=== PATIENT | male | born 2000 | race Caucasian/White ===

== ENCOUNTER 2021-09-12 21:18 | Observation (INO) | payer OTHER, SELFPAY ==
--- NOTE | ~2021-09-12 | CT_ITS ---
EXAMINATION: CT abdomen pelvis w con DATE: 09/12/2021 23:00 INDICATION: Abdominal pain TECHNIQUE: Computed tomography (CT) of the abdomen and pelvis was performed with 100 mL Omnipaque-350 intravenous contrast. Automated exposure control and iterative reconstruction technique were employe d. The dose-length product was 228.93 mGy-cm. COMPARISON: None FINDINGS: Lung bases are clear. Heart size is normal. No pericardial or pleural effusion. Subcentimeter hepatic cyst. Gallbladder, spleen, pancreas, bilateral adrenal glands and kidneys are normal. There is some inflammatory stranding surrounding the retrocecal appendix which is fluid-filled and dilated to 9 mm consistent with acute appendicitis. No bowel obstruction. Bladder is normal. No abscess or free intra peritoneal gas or fluid. Mild thoracic dextrocurvature. IMPRESSION: 1. Acute appendicitis. Dr. Sal discussed these findings with Dr. Badillo at 11:18 PM. Reviewed, dictated and finalized at location A.
[2021-09-12 21:39] VITALS: BP 99/48; PULSE 81; RESP 20; TEMP 36.9; O2SAT 100
--- NOTE | 2021-09-12 21:43 | PC.NURSE ---
Patient refused blood draw in triage, states I need to lay down and I will wait to get to a room.
[2021-09-12 22:19] LABS: Basophils Absolute Auto 0.1 K/mm3 (0.0-0.1); Basophils Percent Auto 0.4 % (0.2-1.2); Eosinophils Percent Auto 0.2 % (0-4.4); Hematocrit 48.8 % (42.0-52.0); Hemoglobin 16.4 g/dL (14.0-18.0); Immature Granulocyte Absolute 0.09 K/mm3 (0.00-0.031); Immature Granulocyte Percent A 0.5 % (0-0.5); Lymphocytes Absolute Auto 1.79 K/mm3 (0.9-3.2); Lymphocytes Percent Auto 9.3 % (18.3-44.2); Mean Corpuscular HGB Conc 33.6 g/dl (32-36); Mean Corpuscular Volume 95.1 fl (80-100); Mean Platelet Volume 10.3 fl (7.4-10.4); Monocytes Absolute Auto 0.9 K/mm3 (0.1-0.6); Monocytes Percent Auto 4.7 % (2.6-8.5); Neutrophils Absolute Auto 16.4 K/mm3 (1.3-6.7); Neutrophils Percent Auto 84.9 % (45.5-73.1); Platelet Count Result 245 k/mm3 (150-375); Red Blood Count 5.13 M/mm3 (4.6-6.20); Red Cell Distribution Width 12.6 % (11.5-14.5); White Blood Count 19.3 K/mm3 (4.5-10.0)
[2021-09-12 22:22] LABS: Add Urine Microscopic? YES; Appearance Urine Clear (Clear); Bilirubin Urine Negative (Negative); Blood Urine Negative (Negative); Color Urine Yellow (Yellow); Glucose Urine UA Negative (Negative); Ketones Urine 1+ mg/dL (Negative); Leukocyte Esterase Ur Negative LEU/UL (Negative); Mucus Urine Heavy /lpf; Nitrate Urine Negative (Negative); Protein Urine 1+ mg/dL (Negative); RBC Urine 0-2 /hpf (0-2); Specific Grav Ur 1.023 (1.001-1.035); Squamous Epithelial Cell Urine Rare /hpf (Few); Urobilinogen Urine Negative mg/dL (<2.0); WBC Urine 0-3 /hpf
--- NOTE | 2021-09-12 22:29 | ED.ABDPAIN ---
HPI - Abdominal Pain General Chief Complaint: Abdominal Pain <Mehnaz Badillo APRN - Last Filed: 09/13/21 03:30> Stated Complaint: abdominal pain <Mehnaz Badillo APRN - Last Filed: 09/13/21 03:30> Time Seen by Provider: 09/12/21 21:55 <Mehnaz Badillo APRN - Last Filed: 09/13/21 03:30> Source: patient <Mehnaz Ajay Badillo APRN - Last Filed: 09/13/21 03:30> Mode of arrival: ambulatory <Mehnaz Badillo APRN - Last Filed: 09/13/21 03:30> History of Present Illness HPI narrative: 21-year-old male presents today with complaints of generalized abdominal pain that started about 1:00 this afternoon. Patient with complaints of nausea and vomiting x1. Patient denies any surgical history of the abdomen. Patient denies diarrhea, constipation, or fever. Patient states it is a sharp pain. Alleviating factor includes lying on his side and crawling up. Aggravating factors include certain movements, positions, and palpation. Patient denies any urinary symptoms. Patient denies drug usage. <Mehnaz Badillo APRN - Last Filed: 09/13/21 03:30> Related Data Home Medications: Home Medications Medication Instructions Recorded Confirmed No Home Medications 09/12/21 09/12/21 <Mehnaz Badillo APRN - Last Filed: 09/13/21 03:30> Allergies/Adverse Reactions: Allergies Allergy/AdvReac Type Severity Reaction Status Date / Time No Known Allergies Allergy Verified 09/13/21 01:06 <Mehnaz Badillo APRN - Last Filed: 09/13/21 03:30> Review of Systems Review of Systems: CONSTITUTIONAL: Denies fever, chills, or sweats. EYES: Denies visual changes, redness, or discharge. ENT: Denies rhinorrhea, congestion, sore throat, or otalgia. CARDIOVASCULAR: Denies chest pain, palpitations, or edema. RESPIRATORY: Denies cough or dyspnea. GASTROINTESTINAL: Generalized abdominal pain, nausea commenting and vomiting x1. Denies diarrhea. GENITOURINARY: Denies dysuria or hematuria. SKIN: Denies rash or itching. MUSCULOSKELETAL: Denies back pain, joint pain, or myalgia. NEUROLOGIC: Denies headache, numbness, dizziness, or weakness. PSYCHIATRIC: Denies anxiety or depression. <Mehnaz Badillo APRN - Last Filed: 09/13/21 03:30> PMFSH Family History Family History: Family History (Updated 09/13/21 @ 00:41 by Maria Aquino RN) Grandparent Lymphoma Malignant neoplasm of prostate Breast cancer Father Appendicitis <Mehnaz Badillo APRN - Last Filed: 09/13/21 03:30> Social History Social History: Social History Smoking status: Never smoker Alcohol intake: never Substance use: never Substance use type: does not use Spiritual care concerns: No <Mehnaz Badillo APRN - Last Filed: 09/13/21 03:30> Exam Narrative: GENERAL: Well-appearing, well-nourished, and in no acute distress. HEAD: Normocephalic, atraumatic. EYES: PERRLA and EOMI. ENT: Nares clear, no rhinorrhea or epistaxis. Mucous membranes moist. Oropharynx without tonsillar hypertrophy exudate or other lesions. Bilateral TMs pearly parisi nonbulging NECK: Supple. No adenopathy or masses. No carotid bruits or JVD CHEST: Clear to auscultation. No respiratory distress. No wheezes rales or rhonchi HEART: Regular rate and rhythm. No murmur heard. Normal peripheral pulses. ABDOMEN: Generalized abdominal tenderness worse to right lower quadrant. No guarding noted. Normal active bowel sounds and nondistended. EXTREMITIES: Normal range of motion. No edema. SKIN: Warm, dry, no rash. NEURO: No focal deficits. Alert and oriented x3. PSYCH: Normal mood and affect. <Mehnaz Badillo APRN - Last Filed: 09/13/21 03:30> Course Course Emergency Course: Reviewed labs and CT with patient. Patient aware that he has an acute appendicitis. Patient to be admitted under observation with plan for surgery tomorrow. All questions answered. Patient in agreement with plan of care. <Mehnaz
[2021-09-12 22:36] LABS: Alanine Aminotransferase 15 U/L (4-50); Albumin Level 5.2 g/dL (3.5-5.1); Alkaline Phosphatase 86 U/L (38-126); Anion Gap 12 mmol/L (8-16); Aspartate Amino Transferase 24 U/L (17-59); Bilirubin,Total 1.1 mg/dL (0.2-1.3); Blood Urea Nitrogen 10 mg/dL (9-20); Calcium 9.4 mg/dL (8.4-10.2); Carbon Dioxide 25 mmol/L (22-30); Chloride 102 mmol/L (98-107); Estimated Glomerular Filt Rate > 60; Glucose 122 mg/dL (65-110); Lipase 44 U/L (23-300); Potassium 3.3 mmol/L (3.4-5.0); Sodium 139 mmol/L (137-145)
[2021-09-12] MEDS: LACTATED RINGERS 1,000 ML 999 ML IV CONT (22:38)
[2021-09-12] MEDS: ONDANSETRON INJ 4 MG/2 ML VIAL IV PUSH (22:39)
[2021-09-12] MEDS: MORPHINE SULFATE (*CRX) 4 MG/ML INJ 2 MG IV PUSH (22:39)
[2021-09-12] MEDS: MORPHINE SULFATE (*CRX) 2 MG/ML INJ IV PUSH (23:45)
[2021-09-12] MEDS: LACTATED RINGERS 1,000 ML 125 ML IV CONT (23:48)
[2021-09-12 23:51] VITALS: BP 122/73; PULSE 52; RESP 16; O2SAT 100
[2021-09-13] VITALS (11 sets, daily range): BP systolic 106–123; BP diastolic 53–78; PULSE 47–68; RESP 11–16; TEMP 36.2–37.1; O2SAT 96–100; BMI 18.7
--- NOTE | 2021-09-13 00:36 | ADMGEN ---
This patient, Lev Mendez, was admitted to Medical Room 258-. Patient/family oriented to hospital policies and general routines including ID bracelet, bed and alarms, visiting hours, pain management, procedures, bathroom and other care routines, personal items, smoking policy, room service/diet, and visiting hours. Information on how to activate the Rapid Response Team has been discussed. Patient/Family are encouraged to report perceived risks to care and to ask questions if they do not understand what they are told or what they should do.
[2021-09-13] MEDS: MORPHINE SULFATE (*CRX) 4 MG/ML INJ 2 MG IV PUSH ×2 (01:39→12:25)
--- NOTE | 2021-09-13 07:03 | WPDANESEPP ---
Anes - Eval Pre Procedure Date/Time: 09/13/21 07:03 Pre Op Diagnosis: Acute Appendicitis Patient Data Age: 21 Gender: M Height: 1.88 m Weight: 66.1 kg Last Vital Signs Temp 36.8 C 09/13/21 06:00 Pulse 55 L 09/13/21 06:00 Resp 16 09/13/21 06:00 BP 106/53 L 09/13/21 06:00 Pulse Ox 100 09/13/21 06:00 Allergies Allergy/AdvReac Type Severity Reaction Status Date / Time No Known Allergies Allergy Verified 09/13/21 01:06 Home Medications Medication Instructions Recorded Confirmed Type No Home Medications 09/12/21 09/12/21 History Laboratory Tests 09/12/21 09/12/21 09/12/21 22:11 22:11 22:11 WBC 19.3 K/mm3 H K/mm3 (4.5-10.0) RBC 5.13 M/mm3 M/mm3 (4.6-6.20) Hgb 16.4 g/dL g/dL (14.0-18.0) Hct 48.8 % % (42.0-52.0) MCV 95.1 fl fl (80-100) MCH 32.0 pg pg (26-34) MCHC 33.6 g/dl g/dl (32-36) RDW 12.6 % % (11.5-14.5) Plt Count 245 k/mm3 k/mm3 (150-375) MPV 10.3 fl fl (7.4-10.4) Immature Gran % (Auto) 0.5 % % (0-0.5) Neut % (Auto) 84.9 % H % (45.5-73.1) Lymph % (Auto) 9.3 % L % (18.3-44.2) [place] % (Auto) 4.7 % % (2.6-8.5) Eos % (Auto) 0.2 % % (0-4.4) Baso % (Auto) 0.4 % % (0.2-1.2) Lymph # (Auto) 1.79 K/mm3 K/mm3 (0.9-3.2) [place] # (Auto) 0.9 K/mm3 H K/mm3 (0.1-0.6) Eos # (Auto) 0.0 K/mm3 K/mm3 (0-0.3) Baso # (Auto) 0.1 K/mm3 K/mm3 (0.0-0.1) Abs Immat Gran (auto) 0.09 K/mm3 H K/mm3 (0.00-0.031) Absolute Neuts (auto) 16.4 K/mm3 H K/mm3 (1.3-6.7) Absolute Nucleated RBC 0.0 K/mm3 K/mm3 (0.0-0.012) Nucleated RBC % 0.0 % % (0.0-0.2) Sodium 139 mmol/L mmol/L (137-145) Potassium 3.3 mmol/L L mmol/L (3.4-5.0) Chloride 102 mmol/L mmol/L (98-107) Carbon Dioxide 25 mmol/L mmol/L (22-30) Anion Gap 12 mmol/L mmol/L (8-16) BUN 10 mg/dL mg/dL (9-20) Creatinine 0.80 mg/dL mg/dL (0.7-1.3) Estim Creat Clear Calc Not Reportable Estimated GFR > 60 (59 - ) Glucose 122 mg/dL H mg/dL (65-110) Calcium 9.4 mg/dL mg/dL (8.4-10.2) Total Bilirubin 1.1 mg/dL mg/dL (0.2-1.3) AST 24 U/L U/L (17-59) ALT 15 U/L U/L (4-50) Alkaline Phosphatase 86 U/L U/L (38-126) Total Protein 9.0 g/dL H g/dL (6.3-8.2) Albumin 5.2 g/dL H g/dL (3.5-5.1) Lipase 44 U/L U/L (23-300) Urine Color Yellow (Yellow) Urine Appearance Clear (Clear) Urine pH 6.0 (5.0-9.0) Ur Specific Ranger 1.023 (1.001-1.035) Urine Protein 1+ mg/dL H mg/dL (Negative) Urine Glucose (UA) Negative mg/dL mg/dL (Negative) Urine Ketones 1+ mg/dL H mg/dL (Negative) Ur Blood (Man) Negative (Negative) Urine Nitrate Negative (Negative) Urine Bilirubin Negative (Negative) Urine Urobilinogen Negative mg/dL mg/dL (<2.0) Leukocyte Esterase Rfl Negative MANGO/UL MANGO/UL (Negative) Urine RBC 0-2 /hpf /hpf (0-2) Urine WBC 0-3 /hpf /hpf Ur Squamous Epith Cells Rare /hpf /hpf (Few) Urine Mucus Heavy /lpf H /lpf Patient hx anesthesia problems: none Family hx anesthesia problems: none Results Review: All pre-operative results and documents have been reviewed as part of the pre-operative evaluation. [facility] Family History Family History (Updated 09/13/21 @ 00:41 by Maria Aquino, RN) Grandparent Lymphoma Malignant neoplasm of prostate Breast cancer Father Appendicitis Social History Social History Smoking status: Never smoker Alcohol intake: nev
--- NOTE | 2021-09-13 07:36 | PM.IMHP ---
H&P: HPI History of Present Illness Date/Time: 09/13/21 07:36 Pt is a 21 y/o M presenting to ED c/o severe RLQ abd pain since yesterday afternoon. Pt reports pain started acutely around 1pm. Pt reports pain has progressively become more constant and localized in RLQ. Pt reports assoc nausea, bloating, anorexia. Pt denies previous episodes. Chief Complaint: acute appendicitis Review of Systems Constitutional: Constitutional: Reports anorexia, Reports fatigue, Denies fever(s), Reports poor appetite, Denies weight gain and Denies weight loss Eyes: Eyes: Reports no additional eye complaints ENT: Reports system reviewed and no additional complaints, except as documented Cardiovascular: Cardiovascular: Reports no additional cardiovascular complaints Respiratory: Respiratory: Reports no additional respiratory complaints Gastrointestinal: Gastrointestinal: Reports as per HPI, Reports abdominal pain, Reports GI cramping, Reports nausea and Denies vomiting Genitourinary: Genitourinary: Reports no additional male genitourinary complaints Musculoskeletal: Musculoskeletal: Reports no additional musculoskeletal complaints Integumentary/Breasts: Skin/Breast: Reports system reviewed and no additional complaints, except as docu Neurologic: Reports system reviewed and no additional complaints, except as documented Psychiatric: Psychiatric: Reports no additional psychiatric complaints Endocrine: Endocrine: Reports no additional endocrine complaints Hematologic/Lymphatic: Hematologic/Lymphatic: Reports no additional hematologic/lymphatic complaints Allergic/Immunologic: Allergic/Immunologic: Reports no additional allergic/immunologic complaints [facility] Family History Family History (Updated 09/13/21 @ 00:41 by Maria Aquino RN) Grandparent Lymphoma Malignant neoplasm of prostate Breast cancer Father Appendicitis Social History Social History Smoking status: Never smoker Alcohol intake: never Substance use: never Substance use type: does not use Spiritual care concerns: No Comments PMH - none Surg history - none FH - no CRC, IBD Meds Home Medications and Allergies Home Medications Medication Instructions Recorded Confirmed Type No Home Medications 09/12/21 09/12/21 History Allergies Allergy/AdvReac Type Severity Reaction Status Date / Time No Known Allergies Allergy Verified 09/13/21 01:06 Vital Signs Vital Signs - 24 hr 09/12/21 21:39 09/12/21 23:51 09/13/21 00:42 Temperature 36.9 C 37.1 C Pulse Rate 81 52 L 57 L Respiratory Rate 20 16 14 Blood Pressure 99/48 L 122/73 113/62 Pulse Oximetry 100 100 100 09/13/21 06:00 Temperature 36.8 C Pulse Rate 55 L Respiratory Rate 16 Blood Pressure 106/53 L Pulse Oximetry 100 Exam Const: General: cooperative, acute distress moderate and uncomfortable Nutritional Appearance: average body habitus Orientation/consciousness: patient oriented x3 Limitations: no limitations HENMT: Head: normal to inspection, normocephalic and atraumatic Ears: hearing grossly normal bilaterally General nose exam: Normal external nose present Face and sinus: normal facial exam Mouth: Yes Normal oral and palatal mucosa present and Yes moist mucous membranes Eyes: General: appearance normal, both eyes and all related structures Pupils: Equal, round and reactive pupils present EOM: EOMs intact bilaterally Neck: Neck: normal visual inspection, full ROM and no lymphadenopathy Chest: Chest palpation & inspection: normal inspection of the chest Resp: Effort & Inspection: normal respiratory effort Auscultation: clear to auscultation bilaterally Cardio: Rate: regular rate Rhythm: regular rhythm GI: Inspection: normal to inspection and Abdominal wall edema GI Palp: Yes abdominal tenderness, Yes Soft to palpation, Yes Tenderness to palpation present (GI), Yes Guarding due to palpation present
--- NOTE | 2021-09-13 07:40 | WPDANESEFPP ---
Anes - Eval Final PreProcedure Day of Procedure 09/13/21 07:40 Patient weight: normal Heart: regular rate and rhythm Lungs: clear to auscultation and normal air movement Airway: Mallampati scale class II Neurological: alert and oriented Last oral intake: >/= 8 hours ASA classification: I Emergent: no Anesthetic plan: proceed Anesthesia type and monitoring: general ETT Results Review: All pre-operative results and documents have been reviewed as part of the pre-operative evaluation. Informed Consent: The patient's anesthetic plan and its attendant risks and benefits were discussed with the patient/family/POA. Questions were solicited and answers provided to the satisfaction of the patient/family/POA.
--- NOTE | 2021-09-13 07:47 | WPDHPUPDATE1 ---
History and Physical Update Update Date/Time: 09/13/21 07:47 History and Physical has been reviewed, including an updated exam of the patient. There are NO changes in the patient's condition. Risks, benefits, and alternatives have been discussed and questions answered. Patient agrees to proceed with procedure.
[2021-09-13] MEDS: LACTATED RINGERS 1,000 ML 30 ML IV CONT ×2 (08:00→09:31)
[2021-09-13] MEDS: BUPIVACAINE/EPINEPHRINE 0.25% 50 ML VIAL 30 ML INFILTRATE (08:28)
[2021-09-13] MEDS: KETOROLAC 30 MG/ML VIAL (*BKC) IV PUSH (08:39)
--- NOTE | 2021-09-13 08:46 | W.PM.PROC2 ---
Procedure Note - Detailed Date of Procedure 09/13/21 Pre-op Diagnosis Acute Appendicitis Post-op Diagnosis Same Procedure Performed laparoscopic appendectomy Surgeon Teresa Hill MD Anesthesia General Indications 21 y/o M c acute appendicitis Findings retrocecal appendix, uncomplicated acute appendicitis Description of Procedure The patient was taken to the operating room and placed in the supine position. After adequate induction of general anesthesia, the patient was prepped and draped in the normal sterile fashion. A time-out was then done to verify the patient's identity, as well as the procedure being performed. I began by making a 5 mm incision in the infraumbilical region, through this a Veress needle was placed in the peritoneal cavity. CO2 gas was then insufflated and after adequate pneumoperitoneum was achieved the Veress needle was removed. Then placed a 5 mm Optiview trocar under direct visualization into the peritoneal cavity. I then insufflated through this trocar site and the endoscope was placed into the trocar. Under direct visualization, placed 2 further 5 mm suprapubic port as well as an additional 12 mm port in the left lower abdomen. At this point identified the cecum, I retracted the cecum both medially and superiorly allowing me to expose the appendix. The appendix was noted to be very dilated and inflamed. The appendix was noted to be retrocecal and to the right lateral sidewall. I was able to bluntly and sharply dissect the appendix from these adhesions. I then was able to locate the base of the appendix with the cecum. I created a window with the [place] dissector between the appendix itself and the mesoappendix. I then transected the mesoappendix with a white vascular staple load. The Endo-DARIO was then reloaded with a blue staple load and I transected the base of the appendix. Once the specimen was completely detached, an endo-pouch was placed into the 12 mm port site and the specimen was removed through the endo-pouch. The appendiceal specimen will be sent to pathology for further review. I then copiously irrigated the right lower quadrant. Hemostasis was noted at both staple lines no other pathology was seen in this area. I then moved the camera to the suprapubic port to check our its port of entry. No iatrogenic injury or other pathology was noted in the upper abdomen. I then closed the 12 mm port site with a Jose code and 0 Vicryl suture under direct visualization. At this point, the abdomen was desufflated and all ports were removed. All port sites were closed with 4 Monocryl subcuticular suture. Dermabond was placed on all wounds. The patient tolerated the procedure well and was extubated in the operating room postop. He will be sent to the recovery room in stable condition. Estimated Blood Loss 5 Drains No Packing No Pathology Yes Complications No immediate complications Condition Stable Disposition PACU
[2021-09-13] MEDS: ONDANSETRON INJ 4 MG/2 ML VIAL IV PUSH (09:16)
[2021-09-13] MEDS: fentaNYL CITRATE INJ (*CRX) 100 MCG/2 ML VIAL 25 MCG IV PUSH ×2 (09:19→09:21)
[2021-09-13] MEDS: LACTATED RINGERS 1,000 ML 125 ML IV CONT (10:46)
[2021-09-13] MEDS: HYDROcodone/acetaminophen (*CRX) 5-325 MG TABLET 1 TAB PO (17:46)
--- NOTE | 2021-09-17 09:18 | PM.DS ---
DS: Admitting Diagnosis Discharge Date 09/13/21 Admitting Diagnosis acute appendicitis DS: Discharge Diagnosis Discharge Diagnosis (1) Acute appendicitis: Qualifiers: Acute appendicitis type: unspecified acute appendicitis type Qualified Code(s): K35.80 - Unspecified acute appendicitis Code(s): K35.80 - Unspecified acute appendicitis Status: Acute Assessment and Plan: doing well, cont routine postop care, home c po analgesia, colace, f/u 2 wks DS: Summary Hospital Course Reason for hospitalization: acute appendicitis Hospital Course: Pt is a 21 y/o M presenting to ED c/o severe RLQ abd pain. Workup in ED, including CT, significant for acute appendicitis. Pt admitted and started on IV abx. The pt was then brought to OR urgently for lap appy, please see op report for details. Postop, pt did well and transferred back to surgical floor. Pt was able to marin a diet and was up and ambulating s issue. Pt now to be dc'd c po analgesia, colace. Pt to f/u 2 wks. Status at Discharge Functional status at discharge: independent ambulation Overall status at discharge: patient is progressing back to baseline Time Spent with Patient Time attestation: Total time spent providing and/or coordinating discharge services: Time spent: Less than 30 minutes Exam Const: General: cooperative, comfortable and no acute distress Resp: Effort & Inspection: normal respiratory effort Auscultation: clear to auscultation bilaterally Cardio: Rate: regular rate Rhythm: regular rhythm GI: Inspection: normal to inspection and incision GI Palp: Yes Soft to palpation, Yes Tenderness to palpation present (GI), No Guarding due to palpation present (GI) and No Rigid due to palpation DS: Data Data Completed and Pending Completed studies during hospitalization: Pending at discharge 09/13/21 08:25 Surgical [PTH] Routine Discharge Plan Discharge Attending physician on discharge: Teresa Hill Consulting providers: Phill Sal Discharging Clinician: Teresa Hill Anticipated Discharge Date/Time: 09/13/21 12:00 Patient Disposition: Home, Self-Care Activity: other - see discharge instructions Diet: other - see discharge instructions Wound Care Instructions: other - see discharge instructions Discharge Instructions: DISCHARGE INSTRUCTION SHEET FOR HERNIA, GALLBLADDER AND APPENDIX SURGERIES DR. HILL PATIENT TO TAKE HOME 1. May shower in 24 hours, no soaking in bath x 2weeks. 2. Call office for: Wound increasingly painful or bleeding Vomiting Fever of greater than 101 degrees 3. If no bowel movement for three days, take 1 oz. (30 ml) Milk of Magnesia or MiraLax 17g 1 to 2 times daily. 4. No heavy lifting > 10-15 pounds x 6 weeks for hernia repairs and 2 weeks for laparoscopic cholecystectomy or appendectomy. 5. No driving for 3 days or while taking narcotic pain medications. 6. Ice to surgical site for 48 hours (30 min on, then 30 min off). 7. Up walking 10-30 minutes three times per day. 8. Resume previous home medications. 9. Follow-up 10-14 days in office for wound check or as previously scheduled. ([phone]) 10. Oral pain medications prescription to be sent to pharmacy. Take Tylenol 500mg every 6 hours and Ibuprofen 600mg every 6 hours for the first 2 days, then as needed. 11. NUTRITION: Start out by drinking fluids and increase your diet as tolerated. If you experience nausea, try dry toast, crackers, and 7-UP. If nausea or vomiting persists, contact your surgeon?s office. 12. Gallbladders-Low Fat Diet for 2 weeks (send care note of low fat diet) 13. Inguinal Hernias-wear scrotal support for 48 hours 14. Abdominal Hernias-if sent home with abdominal binder, wear for the first 2 weeks (may remove to shower or at night to sleep).
== END 2021-09-13 18:03 | disposition home or self-care (01) ==
LOC: ANHED 23:38 → ANH2MED 23:51
PROVIDERS: Emergency Medicine; Admitting Provider Surgery; Emergency Provider Nurse Practitioner Family; Visit Provider Surgery
PROC: 0DTJ4ZZ Resection of Appendix, Percutaneous Endoscopic Approach (ICD-10-PCS; CPT 44970; principal; 2021-09-13 08:00)
DX: K35.30 Acute appendicitis with localized peritonitis, without perforation or gangrene (principal)
CPT/HCPCS: 44970; 36415; 74177; 80053; 81001; 83690; 85025; 88304; 96361; 96365; 96375; 96376; 99285; A9270; G0378; J0330; J1100; J1885; J2250; J2270; J2405; J2543; J2704; J3010; J7120; Q9967